=== PATIENT | female | born 1985 | race Caucasian/White ===

== ENCOUNTER → 2017-10-11 | Day surgery (SDC) | payer OTHER ==
[~2017-10-11] MED LIST: BUPIVACAINE HCL 0.5% INJ 30 ML VIAL INJ ONE; CEFAZOLIN SOD 1 GM VIAL ONE; DEXAMETHASONE SOD PHOS INJ 4 MG/ML VIAL ONE; FENTANYL CITRATE/PF 100MCG/2 ML INJ ONE; LIDOCAINE HCL 2% LOCAL INJ 5 ML SDV VIAL INJ ONE; MIDAZOLAM HCL 2 MG/2 ML VIAL ONE; ONDANSETRON HCL INJ 2 MG/ML VIAL ONE; PRENATAL FORMU1 EAC2 PO; PROPOFOL IV EMULSION 10 MG/ML 20 ML VIAL ONE; SEVOFLURANE INHAL SOLN 250 ML PEN BTL ONE
--- NOTE | 2017-10-11 08:01 | Operative Report ---
DATE OF PROCEDURE: October 11, 2017 PREOPERATIVE DIAGNOSIS: Right soft tissue mass. POSTOPERATIVE DIAGNOSIS: Right soft tissue mass. PLANNED PROCEDURE: Excision of soft tissue mass, right foot. ANESTHESIA: General with a postoperative block consisting of 15 mL of 0.5% Marcaine plain mixed with dexamethasone phosphate. HEMOSTASIS: Pneumatic thigh tourniquet set at 350 mmHg for a total time of approximately 20 minutes. MATERIALS: 3-0 Vicryl and 4-0 Prolene. PATHOLOGY: Soft tissue mass sent for gross specimen. DETAILS OF PROCEDURE: Patient was seen in the preoperative waiting where the correct procedure and site was identified. The patient was brought into the operating room and placed on the operating table in the supine position. General anesthesia was initiated at this time. A well-padded pneumatic tourniquet was placed about the patient's right thigh. The right foot, ankle and leg was then scrubbed, prepped and draped in the usual aseptic manner. The right foot and leg was exsanguinated with gravity. The pneumatic thigh tourniquet was inflated to 350 mmHg for a total time of approximately 20 minutes. Attention was directed the dorsal aspect the patient's right foot where a large 2 cm x 2 cm x 2 cm soft tissue mass was noted at the level of the 2nd metatarsal cuneiform joint. Utilizing a #15 blade, a 5 cm linear incision was made directly over the ganglion cyst. The incision was carried through the skin. The cyst was easily identified. Utilizing a blunt dissection with a hemostat and sharp dissection with Littler scissors, the medial, lateral, proximal, distal, and inferior portions of the ganglion cyst were identified. It was dissected free. There was noted to be no nerve entrapment within the ganglion cyst. The medial dorsal cutaneous nerve was medial and the intermediate dorsal cutaneous nerve was lateral to the incision. Utilizing the Littler scissors, the ganglion cyst was dissected and the specimen was removed and passed off to the back table. The stalks were cauterized with electrocautery to prevent reformation. The wound was then flushed with copious amounts of sterile saline. Subcutaneous tissue was reapproximated with 3-0 Vicryl and the skin was closed using a running interlocking stitch with 4-0 Prolene. All incision sites were dressed with Adaptic, 4 x 4's, Kerlix, Alvaro wrap, and a postop shoe. Patient tolerated the procedure and anesthesia well. Patient was transferred to the postoperative recovery unit with vital signs stable and vascular status intact. The patient was monitored there for a short period of time before being sent home with the following written and oral instructions: 1. Keep the dressing clean, dry and intact. 2. The patient is to remain partial weightbearing in a postop shoe and to avoid excessive ambulation until being seen in the office. 3. The patient was given the office number, and ensured to contact us if any problems should arise. Job#: [id number] IDALIA
== END | disposition home or self-care (01) ==
LOC: OR 05:46
PROVIDERS: ATTEND Podiatrist Foot & Ankle Surgery
DX: M67.471 Ganglion, right ankle and foot (principal)
CPT/HCPCS: 28090; 81025; 88304; J0690; J1100; J2001; J2250; J2405